=== PATIENT | female | born 1980 | race Caucasian/White ===

== ENCOUNTER 2023-04-08 23:10 | Emergency (ER) | payer OTHER, SELFPAY ==
--- NOTE | 2023-04-08 | CT_ITS ---
[place] [id number] Patient Name: GENEVIEVE GUTIÉRREZ MRN: [id number] date: 1980 Sex: F Assigned Patient Location: ER Current Patient Location: ER Accession/Order Number: [id number] Exam Date: 04/08/2023 00:59 Report Date: 04/09/2023 04:13 At the request of: ZOE GARCIA Procedure: CT abdomen pelvis w con EXAM: CT abdomen pelvis w con HISTORY: Abdominal pain; constipation for 2 weeks. COMPARISON: None. TECHNIQUE: Routine CT abdomen/pelvis with intravenous contrast. FINDINGS: Lower chest: Unremarkable. Liver: Anne Marie's lobe configuration of the liver, a variant of normal, with the right lobe measuring 20.8 cm in longitudinal dimension. Small focus of focal fatty infiltration or hypoperfusion anterior aspect medial segment left lobe of the liver, abutting the falciform ligament. Gallbladder/biliary tree: Unremarkable. Pancreas: Unremarkable. Spleen: Unremarkable. Adrenal glands: Unremarkable. Kidneys: Unremarkable. Bowel: Nonobstructive bowel gas pattern with a moderate amount of stool within the ascending and transverse colon. There are a few sigmoid diverticula without diverticulitis. The appendix, distal esophagus, stomach and small bowel are unremarkable. Inflammation: There is no free air, free fluid or inflammatory reaction. Vasculature: The abdominal aorta and the IVC are unremarkable. Lymphadenopathy: There are no pathologically enlarged lymph nodes within the abdomen/pelvis. Pelvis: The uterus and adnexal regions are unremarkable. The urinary bladder is unremarkable. There are a few pelvic phleboliths. Musculoskeletal: Small fat-containing umbilical hernia. Small endplate spurs at T11-12. Small bone island within the iliac bones measuring 0.8 cm on the right 0.4 cm on the left. CT/CT abdomen pelvis w con IMPRESSION: Nonobstructive bowel gas pattern with a moderate amount of stool within the ascending and transverse colon. Few sigmoid diverticula without diverticulitis. There is no inflammatory process. Electronically authenticated by: BENNETT SANCHEZ Date: 04/09/2023 04:13
[2023-04-08 23:24] VITALS: BP 137/86; PULSE 125; RESP 18; TEMP 37.2; O2SAT 100; BMI 35.1
--- NOTE | 2023-04-08 23:47 | ED_ITS ---
HPI - Nausea/Vomiting/Diarrhea General Chief complaint: Nausea/Vomiting/Diarrhea Stated complaint: BOWEL ISSUES Time Seen by Provider: 04/08/23 23:39 Source: patient Mode of arrival: walk-in Limitations: no limitations History of Present Illness HPI Narrative: patient presents complaining of constipation and only passing small balls of stool. Also has hemorrhoid. Emesis once tonight and thought she had a fever. No chest pain MD elicited complaint: Reports nausea and vomiting Related Data Home Medications Medication Instructions Recorded Confirmed No Known Home Medications 04/08/23 04/08/23 Allergies Allergy/AdvReac Type Severity Reaction Status Date / Time cephalexin [From Keflex] Allergy Verified 04/08/23 23:28 Review of Systems ROS Status of ROS 10 or more systems reviewed and unremark able except as noted in history and below [facility] Social History Smoking status: Current every day smoker Exam Constitutional Vital Signs, click to edit/add: Last Vital Signs Temp 98.9 F 04/08/23 23:24 Pulse 97 H 04/09/23 02:11 Resp 16 04/09/23 02:11 BP 108/69 04/09/23 02:11 Pulse Ox 100 04/09/23 02:11 O2 Del Method Room Air 04/09/23 02:11 Common normals: no apparent distress, oriented x3, no limitations, healthy appearing, alert and well nourished Eye Common normals: EOMs intact bilaterally and conjunctivae normal Respiratory Common normals: normal respiratory effort, no retractions, no use of accessory muscles and clear to auscultation bilaterally Cardio Common normals: regular rate, regular rhythm, S1 normal heart sound and S2 ant l heart sound GI Common normals: Normal to inspection, nondistended, normoactive bowel sounds present Other: tenderness LLQ anal verge with hemorrhoid non thrombosed anus examined with nursing present Extremity Common normals: normal to inspection Neuro Common normals: oriented x3, CN's II-XII intact bilaterally, moves all extremities and no focal motor deficits Psych Appearance: grossly normal Course Vital Signs Vital signs: Vital Signs Temperature 98.9 F 04/08/23 23:24 Pulse Rate 125 H 04/08/23 23:24 Respiratory Rate 18 04/08/23 23:24 Blood Pressure 137/86 04/08/23 23:24 Pulse Oximetry 100 04/08/23 23:24 Oxygen Delivery Method Room Air 04/08/23 23:24 Temperature 98.9 F 04/08/23 23:24 Pulse Rate 97 H 04/09/23 02:11 Respiratory Rate 16 04/09/23 02:11 Blood Pressure 108/69 04/09/23 02:11 Pulse Oximetry 100 04/09/23 02:11 Oxygen Delivery Method Room Air 04/09/23 02:11 MDM - Nausea/Vomiting/Diarrhea MDM Narrative Medical decision making narrative: patient presents after vomiting. Also complains of hemorrhoid that was confirmed on exam. hemorrhoid not thrombosed. CT with findings of constipation. Patient offered an enema but preferred laxative and discharged home. given magcitrate and discharged to follow up with her doctor. CT without findings of obstruction Lab Data Labs: Lab Results 04/09/23 04/09/23 Range/Units 00:41 03:20 WBC 8.1 (4.0-11.0) 10^3/uL RBC 4.37 (4.20-5.40) 10^6/uL Hgb 12.2 (12.0-16.0) g/dL Hct 37.6 (36.0-48.0) % MCV 86.0 (81.0-99.0) fL MCH 27.9 (26.7-34.0) pg MCHC 32.4 (29.9-35.2) g/dL RDW 12.8 (11.0-15.0) % Plt Count 332 (150-450) 10^3/uL MPV 8.7 L (9.5-13.5) fL Neut % (Auto) 73.3 (43.0-75.0) % Lymph % (Auto) 14.4 L (20.5-60.0) % [place] % (Auto) 9.3 (1.7-12.0) % Eos % (Auto) 2.2 (0.9-7.0) % Baso % (Auto) 0.6 (0.2-2.0) % Neut # (Auto) 5.9 (1.4-6.5) 10^3/uL Lymph # (Auto) 1.2 (1.2-3.8) 10^3/uL [place] # (Auto) 0.8 (0.3-0.8) 10^3/uL Eos # (Auto) 0.2 (0.0-0.7) 10^3/uL Baso # (Auto) 0.1 (0.0-0.1) 10^3/uL Abs Immat Gran (auto) 0.02 (0.00-0.03) 10^3/uL Imm/Tot Granulo (auto) 0.2 (0.0-0.5) % Sodium 136 (136-145) mmol/L Potassium 3.6 (3.5-5.1) mmol/L Chloride 99 (98-107) mmol/L Carbon Dioxide 27.6 (21.0-32.0) mmol/L Anion Gap 13.0 BUN 11.0 (7.0-18.0) mg/dL Creatinine 0.76 (0.55-1.02) mg/dL Est GFR ( Amer) >60 (>=60) Est GFR (Non-Af Amer) >60 (>=60) BUN/Creatinine Ratio 14.5 Glucose 92 (74-106) mg/dL Lactate 1.2 (0.4-2.0) mmol/L Calcium 9.3 (8.5-10.1) mg/dL Total Bilirubin 0.3 (0.2-1.0) mg/dL AST 13 L (15-37) U/L ALT 23 (14-59) U/L Alkaline Phosphatase 94 (46-116) U/L Total Protein 7.8 (6.4-8.2) g/dL Albumin 3.4 (3.4-5.0) g/dL Globulin 4.4 g/dL Albumin/Globulin Ratio 0.8 Lipase 26.0 (16.0-77.0) U/L Urine Color Yellow (YELLOW) Urine Clarity Clear (CLEAR) Urine pH 5.5 (5.0-9.0) Ur Specific [place] 1.015 (1.005-1.025) Urine Protein Negative (NEG/TRACE) mg/dL Urine Glucose (UA) Negative (NEGATIVE) mg/dL Urine Ketones Negative (NEGATIVE) mg/dL Urine Occult Blood Negative (NEGATIVE) Urine Nitrite Negative (NEGATIVE) Urine Bilirubin Negative (NEGATIVE) Urine Urobilinogen 0.2 (0.2-1.0) EU/dL Ur Leukocyte Esterase Negative (NEGATIVE) Imaging Data Abdominal x-ray: Radiologist's impression: of 2 Current View file://[email or web address] [place] [id number] Patient Name: GENEVIEVE GUTIÉRREZ MRN: [id number]:[id number] date: 1980 Sex: F Assigned Patient Location: ER Current Patient Location: ER Accession/Order Number: [id number] Exam Date: 04/08/2023 00:59 Report Date: 04/09/2023 04:13 At the request of: ZOE GARCIA Procedure: CT abdomen pelvis w con EXAM: CT abdomen pelvis w con HISTORY: Abdominal pain; constipation for 2 weeks. COMPARISON: None. TECHNIQUE: Routine CT abdomen/pelvis with intravenous contrast. FINDINGS: Lower chest: Unremarkable. Liver: Anne Marie's lobe configuration of the liver, a variant of normal, with the right lobe measuring 20.8 cm in longitudinal dimension. Small focus of focal fatty infiltration or hypoperfusion anterior aspect medial segment left lobe of the liver, abutting the falciform ligament. Gallbladder/biliary tree: Unremarkable. Pancreas: Unremarkable. Spleen: Unremarkable. Adrenal glands: Unremarkable. Kidneys: Unremarkable. Bowel: Nonobstructive bowel gas pattern with a moderate amount of stool within the ascending and transverse colon. There are a few sigmoid diverticula without diverticulitis. The appendix, distal esophagus, stomach and small bowel are unremarkable. Inflammation: There is no free air, free fluid or inflammatory reaction. Vasculature: The abdominal aorta and the IVC are unremarkable. Lymphadenopathy: There are no pathologically enlarged lymph nodes within the abdomen/pelvis. Pelvis: The uterus and adnexal regions are unremarkable. The urinary bladder is unremarkable. There are a few pelvic phleboliths. Musculoskeletal: Small fat-containing umbilical hernia. Small endplate spurs at T11-12. Small bone island within the iliac bones measuring 0.8 cm on the right 0.4 cm on the left. IMPRESSION: Nonobstructive bowel gas pattern with a moderate amount of stool within the ascending and transverse colon. Few sigmoid diverticula without diverticulitis. There is no inflammatory process Discharge Plan Discharge Chief Complaint: Nausea/Vomiting/Diarrhea Clinical Impression: Nausea and vomiting, Constipation Patient Disposition: Home, Self-Care Time of Disposition Decision: 04:40 Condition: Good Mode of Transportation: Private Vehicle Prescriptions / Home Meds: No Action No Known Home Medications Instructions: Constipation (DC), Acute Nausea and Vomiting (ED) Stand Alone Forms: Portal Instructions Referrals: ALYSA RODRIGUEZ [Primary Care Provider] - 1 week Discharge Date/Time: 04/09/23 04:51
--- NOTE | 2023-04-09 00:44 | PC.NURSE ---
Ultra sound used
[2023-04-09] MEDS: 0.9 % SODIUM CHLORIDE 1,000 ML 999 ML IV (00:53)
[2023-04-09] MEDS: MORPHINE SULFATE 4 MG/ML VIAL IV (00:54)
[2023-04-09] MEDS: ONDANSETRON PF 4 MG/2 ML VIAL IV (00:54)
[2023-04-09 00:57] LABS: Basophils Absolute Auto 0.1 10^3/uL (0.0-0.1); Basophils Percent Auto 0.6 % (0.2-2.0); Eosinophils Absolute Auto 0.2 10^3/uL (0.0-0.7); Eosinophils Percent Auto 2.2 % (0.9-7.0); Hematocrit 37.6 % (36.0-48.0); Hemoglobin 12.2 g/dL (12.0-16.0); Immature Granulocytes Abs Auto 0.02 10^3/uL (0.00-0.03); Immature Granulocytes Pct Auto 0.2 % (0.0-0.5); Lymphocytes Absolute Auto 1.2 10^3/uL (1.2-3.8); Lymphocytes Percent Auto 14.4 % (20.5-60.0); Mean Corpuscular HGB Conc 32.4 g/dL (29.9-35.2); Mean Corpuscular Hemoglobin 27.9 pg (26.7-34.0); Mean Platelet Volume 8.7 fL (9.5-13.5); Monocytes Absolute Auto 0.8 10^3/uL (0.3-0.8); Monocytes Percent Auto 9.3 % (1.7-12.0); Neutrophils Absolute Auto 5.9 10^3/uL (1.4-6.5); Neutrophils Percent Auto 73.3 % (43.0-75.0); Platelet Count 332 10^3/uL (150-450); Red Blood Count 4.37 10^6/uL (4.20-5.40); Red Cell Distribution Width 12.8 % (11.0-15.0); White Blood Count 8.1 10^3/uL (4.0-11.0)
[2023-04-09 01:13] LABS: Lactate/Lactic Acid 1.2 mmol/L (0.4-2.0)
[2023-04-09 01:23] LABS: Alanine Aminotransferase 23 U/L (14-59); Albumin Globulin Ratio 0.8; Albumin Level 3.4 g/dL (3.4-5.0); Alkaline Phosphatase 94 U/L (46-116); Aspartate Amino Transferase 13 U/L (15-37); BUN Creatinine Ratio 14.5; Bilirubin Total 0.3 mg/dL (0.2-1.0); Calcium 9.3 mg/dL (8.5-10.1); Carbon Dioxide 27.6 mmol/L (21.0-32.0); Chloride 99 mmol/L (98-107); Estimated GFR (African America >60 (>=60); Estimated GFR (Non-African Ame >60 (>=60); Globulin 4.4 g/dL; Glucose 92 mg/dL (74-106); Potassium 3.6 mmol/L (3.5-5.1); Sodium 136 mmol/L (136-145); Total Protein 7.8 g/dL (6.4-8.2)
[2023-04-09 02:11] VITALS: BP 108/69; PULSE 97; RESP 16; O2SAT 100
[2023-04-09 03:28] LABS: Bilirubin Urine NEGATIVE (NEGATIVE); Blood Urine NEGATIVE (NEGATIVE); Clarity Urine CLEAR (CLEAR); Color Urine YELLOW (YELLOW); Glucose Urine UA NEGATIVE (NEGATIVE); Ketones Urine NEGATIVE (NEGATIVE); Leukocyte Esterase Urine NEGATIVE (NEGATIVE); Nitrite Urine NEGATIVE (NEGATIVE); Protein Urine NEGATIVE (NEG/TRACE); Specific Gravity Urine 1.015 (1.005-1.025); Urobilinogen Urine 0.2 EU/dL (0.2-1.0); pH Urine 5.5 (5.0-9.0)
[2023-04-09 03:33] LABS: Urine Microscopic Indicated NO
[2023-04-09] MEDS: MAGNESIUM CITRATE 296 ML SOLUTION PO (04:47)
[2023-04-09] MEDS: ONDANSETRON 4 MG RAPDIS TABLET SL (04:48)
== END 2023-04-09 04:51 | disposition home or self-care (01) ==
PROVIDERS: Emergency Provider Internal Medicine; Family Provider Family Medicine; PCP Family Medicine
DX: K59.00 Constipation, unspecified (principal); R11.2 Nausea with vomiting, unspecified; F17.200 Nicotine dependence, unspecified, uncomplicated; K64.9 Unspecified hemorrhoids
CPT/HCPCS: 36415; 74177; 80053; 81003; 83605; 83690; 85025; 96374; 96375; 99285; Q9967

== ENCOUNTER 2024-09-10 01:46 | Emergency (ER) | payer OTHER, SELFPAY ==
[2024-09-10 01:48] VITALS: BP 145/81; PULSE 111; TEMP 37.5; O2SAT 100; BMI 36.3
--- OUTSIDE RECORDS SUMMARY | 2024-09-10 01:53 | XMS_ITS | CCD ---
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 Name Role Phone Link, Joel Young Primary Care Physician [phone] Krystle RODRIGUEZ Primary Care Physician Kasi Bundy Attending Unavailable Kasi Bundy Attending Unavailable Allergies Allergy Classification Reported Allergen(s) Allergy Type Date of Onset Reaction(s) Facility (3 sources) Cephalexin; Translations: [cephalexin] Drug Allergy vomiting [facility] (2 sources) Nicotine; Translations: [nicotine] Drug Allergy Other (qualifier value) [facility] [place] Comment on above: worsens GERD & Asthm a (1 source) Nicotine; Translations: [Nicotrol] Drug Allergy [facility] Repository Medications Current Medications Medication Drug Class(es) Dates Sig (Normalized) Sig (Original) dextromethorphan hydrobromide 1.5 mg/ml / doxylamine succinate 0.625 mg/ml oral solution (2 sources) Uncompetitive E-umjcjk-W-aspartat e Receptor Antagonist, Sigma-1 Agonist Start: 02-08-2021 take 20 mL by mouth every six hours dextromethorphan- doxylamine 30 mg-12.5 mg/20 mL oral liquid 20 mL, Oral, q6hr, 200 mL, Refill(s) 1, [facility], 160, cm, 04/17/20 5:07:00 EST, Height/Length Dosing, 87.7, kg, 04/17/20 5:07:00 EST, Weight Dosing Start Date: 02/08/21 Status: Ordered ketorolac tromethamine 10 mg oral tablet (1 source) Nonsteroidal Anti-inflammatory Drug, Cyclooxygenase Inhibitor Start: 12-23-2021 End: 12-28-2021 take 1 tablet by mouth four times daily as needed for pain ketorolac 10 mg Tab 10 mg = 1 tab(s), Oral, QID, PRN for pain, X 5 day(s), # 20 tab(s), Refills(s) 0, Pharmacy: [facility], 160, cm, 12/23/21 16:44:00 EDT, Height/Length Dosing, 87, kg, 12/23/21 16:44:00 EDT, Weight Dosing Start Date: 12/23/21 Stop Date: 12/28/21 Status: Ordered lidocaine 0.05 mg/mg medicated patch (1 source) Antiarrhythmic, Amide Local Anesthetic Start: 12-23-2021 Lidoderm 5% topical film 1 patch(es), Topical, Daily, 7 EA, Refill(s) 0, apply 12 hours on and 12 hours off daily, [facility], 160, cm, 12/23/21 16:44:00 EDT, Height/Length Dosing, 87, kg, 12/23/21 16:44:00 EDT, Weight Dosing Start Date: 12/23/21 Status: Ordered Lidoderm 5% topical film (1 source) Start: 12-23-2021 Lidoderm 5% topical film 1 patch(es), Topical, Daily, 7 EA, Refill(s) 0, apply 12 hours on and 12 hours off daily, [facility], 160, cm, 12/23/21 16:44:00 EDT, Height/Length Dosing, 87, kg, 12/23/21 16:44:00 EDT, Weight Dosing Start Date: 12/23/21 Status: Ordered Promethazine (2 sources) Phenothiazine Start: 02-08-2021 take 5 mL by mouth every six hours for cough Promethazine DM oral syrup 5 mL, Oral, q6hr for cough, 240 mL, Refill(s) 2, [facility], 160, cm, 04/17/20 5:07:00 EST, Height/Length Dosing, 87.7, kg, 04/17/20 5:07:00 EST, Weight Dosing Start Date: 02/08/21 Status: Ordered Problems Active Problems Problem Classification Problem Date Documented Date Episodic/Chronic Anxiety disorders (2 sources) Generalized anxiety disorder 09-01-2019 Chronic Asthma (4 sources) Asthma 10-01-2013 Chronic Esophageal disorders (2 sources) Gastroesophageal reflux disease 09-01-2019 Chronic Mood disorders (4 sources) Depressive disorder 06-26-2013 Chronic Other circulatory disease (1 source) Disorder of respiratory system; Translations: [Other specified symptoms and signs involving the circulatory and respiratory systems] Onset: 06-25-2022 Episodic Regional enteritis and ulcerative colitis (2 sources) Enteritis of small intestine 09-09-2019 Chronic Skin and subcutaneous tissue infections (2 sources) Abscess 06-26-2013 Episodic Spondylosis; intervertebral disc disorders; other back problems (1 source) Low back pain; Translations: [Low back pain, unspecified] Onset: 12-23-2021 Episodic Substance-related disorders (2 sources) Smoker 09-01-2019 Chronic Comment on above: Added secondary to d ocumentation in Social History. 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 groin abscess MRSA thigh abscess MRSA axilla 10/19/09 Results Test Name Value Interpretation Reference Range Facility ED Clinical Summaryon 2022 ED Clinical Summary [place] [id number] ED Clinical Summary Person Information Name: GENEVIEVE GUTIÉRREZ Jeremy Natalia/[facility] Age: 42 Years : 1980 Sex: Female Language: Kyrgyz PCP: ANDREW STORY CNP Marital Status: Phone: [phone] Visit Id: Visit Reason: Constipation; Fever; Hemorrhoids; Hemorrhoid/FEVER Speciality: Acuity: 2 Enc Type: Emergency Med Service: Emergency Arrival: 04/08/2023 21:27:05 Discharge: 04/09/2023 00:02:05 LOS: 000 02:35 Checkin: 04/08/2023 21:27:05 Checkout: 04/09/2023 00:02:05 Dispo Type: Left Without Being Seen EVENTS: Event Name Event Status Request Date/Time Start Date/Time Complete Date/Time Arrive Complete 04/08/2023 21:27:05 04/08/2023 21:27:05 04/08/2023 21:27:05 Document Home Meds Request 04/08/2023 21:27:05 Triage Complete 04/08/2023 21:27:05 04/08/2023 22:07:12 04/08/2023 22:07:12 Bed Assign Complete 04/08/2023 22:48:06 04/08/2023 22:48:06 04/08/2023 22:48:06 Dr Exam Request 04/08/2023 22:48:06 RN Exam Request 04/08/2023 22:48:06 Discharge Complete 04/09/2023 00:02:20 04/09/2023 00:02:20 04/09/2023 00:02:20 Transfer Complete 04/09/2023 00:02:20 04/09/2023 00:02:20 04/09/2023 00:02:20 ADDRESS: [address] [place] [phone] PHYS DOC NOTES: MEDICAL INFORMATION: Prescriptions Given: Medications to Continue with No Changes Other Medications dextromethorphan-dox ylamine (dextromethorphan-do xylamine 30 mg-12.5 mg/20 mL oral liquid) 20 Milliliter By Mouth every 6 hours. Refills: 1. dextromethorphan-pro methazine (Promethazine DM oral syrup) 5 Milliliter By Mouth every 6 hours as needed for cough. Refills: 2. lidocaine topical (Lidoderm 5% topical film) 1 Patches Topical every day. apply 12 hours on and 12 hours off daily. Refills: 0. PATIENT EDUCATION INFORMATION: Instructions: Follow up: DIAGNOSIS: Normal [facility] ED Patient Education Noteon 04-09-2023 ED Patient Education Note Normal [facility] ED Patient Summaryon 023 ED Patient Summary [address] [address] Patient Discharge Instructions Person Information Name: GENEVIEVE GUTIÉRREZ Age: 42 Years Arrival Date: 04/08/2023 21:27:05 Discharge Diagnosis: Primary Care Physician: ANDREW STORY CNP Provider Information Primary Provider: Advanced [employer] Contact Associate:None The exam and treatment you received in the Emergency Department were for an urgent problem and are not intended as complete care. It is important that you follow up with a doctor, nurse practitioner, or physician?s cardiovascular physician assistant for ongoing care. If your symptoms become worse or you do not improve as expected and you are unable to reach your usual health care provider, you should return to the Emergency Department. We are available 24 hours a day. GENEVIEVE GUTIÉRREZ has been given the following list of patient education materials, prescriptions and follow-up instructions: Follow-up Instructions: In the event that this physician does not participate in your insurance network, please consult with your insurance company to find a nearby participating provider. Patient Education Materials: A MESSAGE TO ALL PATIENTS REGARDING OPIOIDS PRESCRIPTION OPIOIDS: WHAT YOU NEED TO KNOW Prescription opioids can be used to help relieve qcstqtfv-wz-dsfvcu pain and are often prescribed following a surgery or injury, or for certain health conditions. These medications can be an important part of the treatment but also come with serious risks. It is important to work with your healthcare provider to make sure you are getting the safest, most effective care. WHAT ARE THE RISKS AND SIDE EFFECTS OF OPIOID USE? Prescription opioids carry serious risks of addiction and overdose, especially with prolonged use. An opioid overdose, often marked by slowed breathing, can cause sudden . The use of prescription opioids can have a number of side effects as well, even when taken as directed: ? Tolerance?meaning you might need to take more of the medication for the same pain relief ? Physical dependence?meaning you have symptoms of withdrawal when a medication is stopped ? Increased sensitivity to pain ? Constipation ? Nausea, vomiting, and dry mouth ? Sleepiness and dizziness ? Confusion ? Depression ? Low levels of testosterone that can result in lower sex drive, energy, and strength ? Itching and sweating RISKS ARE GREATER WITH: ? History of drug misuse, substance use disorder, or overdose ? Mental health conditions (such as depression or anxiety) ? Sleep apnea ? Older age (65 years and older) ? Avoid alcohol while taking prescription opioids. Also, unless specifically advised by your health care provider, medications to avoid include: ? Benzodiazepines (such as Xanax or Valium) ? Muscle relaxants (such as Soma or Flexeril) ? Hypnotics (such as Ambien or Lunesta) ? Other prescription opioids KNOW YOUR OPTIONS Talk to your health care provider about ways to manage your pain that don?t involve prescription opioids. Some of these options may actually work better and have fewer risks and side effects. Options may include: ? Pain relievers such as acetaminophen, ibuprofen, and naproxen ? Some medication that are also used for depression or seizures ? Physical therapy and exercise ? Cognitive behavioral therapy, a psychological, goal-directed approach, in which patients learn how to modify physical, behavioral, and emotional triggers of pain and stress. IF YOU ARE PRESCRIBED OPIOIDS FOR PAIN: ? Never take opioids in greater amounts or more often than prescribed. ? Follow up with your primary health care provider. o Work together to create a plan on how to manage your pain. o Talk about ways to help manage your pain that don?t involve prescription opioids. o Talk about any and all concerns and side effects. ? Help prevent misuse and abuse o Never sell or share prescription opioids. o Never use another person?s prescription opioids. ? Store prescription opioids in a secure place and out of reach of others (this may include visitors, children, friends, and family). ? Safely dispose of unused prescription opioids: Find your community drug take-back program or your pharmacy mail-back program, or flush them down the toilet, following guidance from the Food and Drug Administration (www.fda.gov/Drugs/R esourcesForYou). ? Visit www.cdc.gov/drugover dose to learn about the risks of opioids abuse and overdose. ? If you believe you may be struggling with addiction, tell your health child care team lead and ask for guidance or call SAMHSA?S National Helpline at 2-639-576-ZZNN. v Source: US Department of Health and Human Services/Center for Disease Control & Prevention [facility] Medications Given: Medication Dose Route No medications found. Medication Informatio (more content not included)... [facility] Consent for Treatmenton 03-16 Consent for Treatment [id number] 31 [id number] #1.00TIFF [facility] Coding Summary.on 06-28-2022 Coding Summary. [id number] Gh0bWw+PGhlYWQ+PE1FV CNkM79ftITthD5eJ9QJW ElOSywgQVBQTElOSyIgb gBcNJ9ihXRkXIKw IC8+QE1bCNErOwygpFAb t9J4cZI6M36jir3xRSsw cZM4SXPnEfOvjhcsq7ne gUm1DHoyNorfOnCa UMDbfZ88OAW8oO93Qc54 yZKqtUUqv9iiqZy9TmOf FJQbGKN1vOwxKJheb5Ji UMCeH63epJBuv3R2 IGNvbGxhcHNlOyBlbXB0 mV6cWRqyfxtfq7lpqpjc Nrv2zn24iCWlk9O6bES4 S1KwxmZ1VXRfmWMp GlnaxKFGgT1qncsfk3ub karfRpWdOKLtRPj5VGw0 YXTsvKpgRpLvJH30INT6 ZJEednWdT7WnDHHx hAprXnR9d6V7Cx4YQ6KO TkzsQ0JIKDRQYLkakQK+ OF42gy64B4YhYljdWfd4 ATVeKBI4jQJ3vS4d RFKkIKpps8W0gEX3V4Pq gjLudo7eg7kqXHKrZKpf W01nyGNgo3I9QEDkxHJ1 CZYfjOrbUuLkzL48 Oyc+YXBxuIrjb9WmXjzj w5tkg9mirZg7QqcuVOOd fjXsmEqvKBN9t9FwZs8v VDMqvSN3eFR7gQ6z CxMpGqE7YFcdH742AjEt hEAoVhhiZ24aD3RmtOH+ ZWGdOwx4AFEuvPcrLP8m G7NoLKWfphqinUNm dGcaLE6jPMSdjsuvFPOm xL3yUDDzO9m1OiXsMaN3 ABozH8TiQDJekxtuEj13 tN6xBgYwYyP6GNyg B9SzopX4KSCsnICwSJri IYJ7H00mm0Y1TBRzQAId INB3hHV8vM4gvBihfxju bGVmdDsgdmVydGlj PXytCTlmA974BTHbkIwq PkNvZGluZyBEYXRlOiAg MDMvMTYvMjAyMzwvdGQ+ LHMbLDZ5xMkkZQBn hABtODthGj9prPvvaHaz UJ9iZKGlsdrnUNPvdL0s RLSuiSFhsFsrRN6pVXJm bcanh365MjPrPUG8 EMVhoJBbC5LlgO4jIiEn KSTbLABnH6RohKBlEJek N588SJwcTbM7PPYdwyUe Z2MmNKLpvExnPiZ8 l0Q3Cb3Qg1PnauyfY1Cr kYVtSsOfKzcpPCa2W2Qy PjwvdHI+WV84ISVkDG53 FTn2XVT2yBrnFIiy UEUlJ9ZpvU1oEqCaEYJv ZGRkOyc+PHRhYmxlIHdp ZHRoPScxMDAlJyBzdHls MP9eUq9uMRFlPDEy eVwlkJQxTcUgl9ygTDXc MDtaFH4igGnsU9RcvIM8 RINsu4k6Yo02R36xQ4Co dXA+LMLjuRP9rKG7 pF8hBySdPjX5DYflP362 KyPevAIpRdbyi8jor6sc pYq5CdQ6DSUzwuCioIjd TFW3q4HeUu40I87t IHdpZHRoPSIxNSUiIHZh pQiynh5rgD8vBm4+PGNv hFH9tXR2cY2xJcDvQiP4 IIkqA068HkZozFGf Avbft7lhg4rkgWy0SoJp KZNqiiAcqKxkQMK7m0Yn Ir49C7TbzJgnv3CfZmg6 uw74kYEky1X5iPZ7 M0KoDQFzwvftaAWhyYhj YF9hKXSlttueHTGqqO4i HSBgR2v3TdZrSrG9FAty A8SiedF9ULVoqPGg DUIpwJVLwW7rtxert1wq huczQsOjDPGhFAa0YFt1 QVBkhVpiSoVqMHQ7DkF3 IYE5qKFqrO4bxKdd jrkagP5uAmp+IJX9qDHb wRWFAT7gGugmwQZ+PHRk LTK2mKchILhoDSMtkW5c TBGlG5x5BnNnXyQ4 XRenT1KrquV0DTAopKHf EONiuEYKqQ0cmfwby2lx khpqNtRaHRHwOYi2GOb6 LWFsaWduOiBsZWZ0 NxK1DAR7wDNmrN7gnBpp nmviyN9nZzd+QmlydGgg QFY7SKa2K4PiOff9KEId qLjaYV3ryFReNCnl Lc3poOpsvDohHJ0iQPWi owjoa789ZlGkv4sdWFDy pCBcBGknDQR0T43qg9T2 BRIyFZJxDVC6rSV2 aX5ezCnmeqjacBJlpHdw eqNrqBgvPPymFMbdF854 USExbJatYoNcNKd2W9Sh Ort2ETOqxVgtBV4o gDDkFLfvSz4tyMjbmXxz LZ8wXFYtpxcmb055LdWe y6zqCLAuoDMsOKweWUI9 H93np9L1MWBlKZNy GCO7eVH9mQ7anZsonkbx bGVmdDsgdmVydGljYWwt ZLxsT103BKPtqTilQaTw wLz4H9MaLmc9FSVj tOheEF2xiSPbDMpvOn1m qPmixVicZB6fMWFjixup n532LiDue1pqLWDlmZSv TRcoKYN4N35ro6B3 BCOvFMXrTGO7zXZ8sN0g bGlnbjogbGVmdDsgdmVy zRdwKJxfLIhqN489FWZf cDsnPlBhdGllbnQg YVqyBPk7U7GrJxtkyVV+ OP07CASzHY48eETuiQEe p2qyrLq1VtFyNWRfISA8 mUqqSFbar0FwATAc K26xpGDdn8V0UQWkkDsv cRIwEgFwfPL5yA7wTKvt zihqw8luqaifYlszl6rk ft12zL88B08tKBrh ZHRoPSIzMCUiIHZhbGln zc1cmK5nSd5+PGNvbCB3 tMU7dJ7mRKWoOaJ4EXog S562OyDbrGYtStva f4egn6tgxZj4NmZ9ZXVj tqNzsSjyGXZ8k6GwTp76 A41zSVbpMGTnQCNvEGJx ZEGgxWuldl5slF1d Ii8+WABouSQ4kQK7lI1q GlFpLqW2SFqiJ366RpEy mRHvXubzO84mZ6JdfFU+ JEXaOod0ZOMfoRde GH9nqKSbDNgsFf6qFRW9 LoXoRkRiJNntT2ApJEEx dvaieejkzQM4MVRbOWZe tE02Kj5unVfjOQAk gPNXyR5axtxkf3amjcqh GpIrHNRuAUy3LKp6BLDb qEmpQbUuNVU7ByM6ZYE8 wZXykM2ucVugrroo bB9sU1WlPXXrjdalYd07 cN2mJtDwNeS1WXqaZbo+ M6QRH0BZTKpAUVAUDWFA Yj6IQW65B1GhBtu2 NVYddXevQD6ffAXbLCxy Up5riUaayExeIN0oNDHd cauhZYDeaI1xQKKriFRz iGsfAJ7iSHXcsvsb v383XhSlFUM0HUHakYBh Y6KciI1nKyYuUGTtDILt Q6ApgBFvKOobA038JNuy NpW7LXVdfyDfX5Gc EROvaFwaUmQ1p4H6Ln7r Nq6yMA1tLBusAV77NO84 oXEzc2Y1yEY6Q6DlPLCw icnerzzfqCF9AHAz JAUcaC17zTBkJDigRp0y z4K0p017XCLwVLIguL67 Xq4osDyfTNYqnAXKxG7a jacuw2lrgykmXnKu MNJhIZk1AJz0GJPsjKjp DzDlHPC3MmW0GSI5vVZv oQ3eqPbjqbbbdT8rYzc+ KanyHFKtohU4R5Il Mao9YUXweFlaHV2deVRa GWvfMz9qfXteoOnpUP0c VNMnikdnJWIxcY5xCWZe tHQtyYomZU3uTJNo djwtb071MmZyJQO7BWQw hNJxZ4FcmZ1qUbRyZCHj WURaE8ZfkZJrZRdaM263 KLafUoI1BGRayxHn L5GuUTQtxGyjItL1f0E3 Yp1FUB6gjUP3U9PgUnf6 PULjxQyqHE7nvKEmENfb Rs7hiQfyyDxuPN2c JELktrvpXHUuiY3pNKPr bCVngMynQV9rLGOfaswj f796XrOkSMN0ONHujJJk J2LhoY7sMjGyKNZq TAHfY3BhxVCgNCxqJ760 SBgtLmA9LOJfeiQvR8Re HRMwiNxaQbW5u0I1Od1J yCQvD6FfG7i4L2Ss PjwvdHI+FN55AUJeST59 bKDhrUCuy8xmuVt6NqDm MFPbJOT0nMjtSRqab5Ev QIXeU90riJAze2M9 IGNvbGxhcHNlOyBlbXB0 qY1xQOqncvzye5dbzvoz Nvvqk8vwlj73iP83T25t IHdpZHRoPSIzMCUi WVHarYqwjl1zaP4rJt3+ WFWjpIB4rXD9jK8xCdRo HlN3AQqvJ619PjRyrNGk Cgoih9ccg2wzaMn9 IjIwJSIgdmFsaWduPSJ0 v6QoHj81L05zNMcxNILu HYUmLYUbRLRxjVmutb1o sY5aLs9+FN7mj7wh nn13oY75bQQ+PHRkIHN0 dFmqGDcjWONhyB5lIOku VtH5RZOmMdOgtU61oMIq ANpwCp6qqIpcjUfm IT4aNFBuepuwr957RzMa s9xqEMQuoIGmOHumVYI8 B36ol0M8MLCqJAJmEXC1 sVF3hF1qcBytzbgw bGVmdDsgdmVydGljYWwt QCnkA186VBRctDtbHoVr iSCdN2brlpKEZP1qAzah dGQ+VBEsZDH7sIci NMbxMGZjyC6hHTZsE8x1 EgPeLrL1AOoeP0NadeU9 ENTsmHWbQQFojWARwF9j teqmu8dndsttTcXp JZPvOIw3AGq3TCXzePun UoUqBJI4KaY8TRK8eWXq gK6ntQfwrakwlH1vZlh+ RklOOjwvdGQ+PHRk RBR9tAxnRPavGCPsqS7k LGYcK8k3OpKjUfY0HMmm I8BlkyO8OVNcwHEmYMIj dZAClX6ktlgsb7qt qfbfXeQaEFPnYOc0FVl4 COZncRzzZsUvVDP0ZoG1 PDG6iSTzdU5jvHgvuymq nN4aEpy+TVJOOjwv dGQ+VLBfAEQ7lQgaEOhm YXAabS6bNJJnB9d4SeMz KwL1ANwoO2DytlP5WCHc xRQgGRBsbXUCsI6x lruaf2ijpytqQiErFPQs LQb9SXp2YBKdgLhsPbZe VRU5ExK9NYR6cSOucS1q pAmajduhwU5kZsb+ MHP0SUV5PZ84TE21J4Ik PjwvdGFibGU+PHRhYmxl IHdpZHRoPScxMDAlJyBz rDtiFY7zMr8yUPIi LWNv (more content not included)... Normal [facility] ED Note-Physicianon 06-27-19 ED Note-Physician Basic Information Time Seen: Zac Craig PA-C 06/25/2022 20:10 Chief Complaint pt to ED with c/o possible throat FB. pt states she was eating smarties and she bite into one and the other half flung back into throat. incident occured yesterday. pt still has FB sensation. c/o painful swallowing. no SOB or drooling. History of Present Illness Patient is a 41-year-old female presents ED with complaint of a foreign body sensation in her throat. Patient reports that she was eating smarties candies yesterday and she had half of 1 which she swallowed whole. Patient reports that since that time she had a sensation like there was a smarties stuck in the back of her throat. Patient complains of pain with swallowing. Patient denies any shortness of breath, difficulty handling secretions. Patient denies any cough, shortness of breath, chest pain. Patient report does report that she made herself throw up today try to get rid of it with no relief. Patient has been able to eat and drink today. Review of Systems Full 10 system ROS performed. Pt denies symptoms except as noted above in the HPI. Physical Exam Vitals & Measurements T: 36.9 ?C(Oral) HR: 111(Peripheral) RR: 18 BP: 150/90 SpO2: 98% HT: 160 cm WT: 88.7 kg BMI: 34.65 VITALS: I have reviewed the triage vital signs. GENERAL: Well developed, well appearing adult in no acute distress. NEURO: Alert and oriented. Moves all extremities. Face is symmetric and expressive. EYES: PERRL. No scleral icterus or conjunctival injection. No discharge. HENT: Normocephalic, atraumatic. Hearing is grossly intact. Nares grossly patent and without discharge. Mucous membranes moist. NECK: No JVD. Patient moves neck without restriction. CARDIO: Rhythm regular. Normal rate. No murmur, rub, or gallop. Pulses equal bilaterally in the upper and lower extremity. No lower extremity edema. PULM: Lungs clear to auscultation in all young. No wheezes, rales, or rhonchi. No conversational dyspnea. No splinting, stridor, or accessory muscle use. GI/: Abdomen is soft and non-tender. Normoactive bowel sounds. EXTREMITIES: Symmetric muscle bulk. No joint swelling. No clubbing, cyanosis, or deformity. SKIN: Warm and dry. Normal turgor. No rash or lesions appreciated. PSYCH: Mood, affect, and interaction is appropriate to the setting. Medical Decision Making Number and Complexity of Problems Differential Diagnosis: [] [facility] Data External documents reviewed: Not applicable My EKG interpretation: Not applicable My CT interpretation: Not applicable My X-ray interpretation: Not applicable My Ultrasound interpretation: Not applicable Decision rules/scores evaluated: Not applicable Discussed with: Not applicable Treatment and Disposition ED Course: Patient presents ED with complaint of foreign body sensation in throat. Patient without any difficulty breathing, lungs clear to auscultation. Nothing visible on physical exam. Patient most likely with globus sensation from scratch of oropharynx or esophagus. Patient given a GI cocktail. Patient struck to follow-up with PCP with ongoing symptoms. Return precautions discussed. Patient discharged home. Shared decision making: As above Code status: Not addressed during this visit Assessment/Plan Globus sensation (R09.89: Other specified symptoms and signs involving the circulatory and respiratory systems) Orders: Al hydroxide/Mg hydroxide/simethicon e, 30 mL, Susp-Oral, Oral, Once, Stop date 06/25/22 20:27:00 EDT, STAT, Start date 06/25/22 20:27:00 EDT atropine/hyoscyamine /PB/scopolamine, 10 mL, Elixir, Oral, Once, Stop date 06/25/22 20:27:00 EDT, STAT, Start date 06/25/22 20:27:00 EDT lidocaine topical, 200 mg, 10 mL, Soln-Oral, Oral, Once, Stop date 06/25/22 20:27:00 EDT, STAT, Start date 06/25/22 20:27:00 EDT Medications Administered Given Al hydroxide/Mg hydroxide/simethicon e 200 mg-200 mg-20 mg/5 mL oral suspension, 30 mL, Oral Elixir, 10 mL, Oral lidocaine Viscous Top 2% Betzy 15 mL, 200 mg, Oral Disposition Plan Patient Discharge Condition Stable Discharge Disposition To home Discharge Prescription List Prescriptions No active prescription medications Follow-up With When Contact Information Krystle RODRIGUEZ In 3 days 06/28/2022 EDT 24 [facility] [place] [address] Business (1) Additional Instructions: Call the office of your primary care doctor to arrange for follow-up within the above-stated timeframe. Follow-up with your primary care doctor about this ED visit. You should review your labs, imaging, and diagnoses from this ED visit with your primary care physician. If you were prescribed medications you should discuss possible side-effects and drug interactions with your pharmacist. Call 911 or go to the nearest Emergency Department if you develop any new or worsening symptoms. Patient Education Swallowed Foreign Body, Adult Attestation Patient seen and evaluated (more content not included)... Normal [facility] Comment on above: Result Comment: Elec tronically Signed By: Zac Craig PA-C\.br\Date and Time Signed: 06/25/22 21:23 EDT\.br\Electronically Co-Signed By: Kasi uBndy DO\.br\Date and Time Co-Signed: 06/26/22 00:55 EDT Consent for Treatmenton 06-13 Consent for Treatment [id number] 30 [id number] #1.00CD:127 Normal [facility] Discharge Instructionson Discharge Instructions [id number]#1.00CD:127 [facility] ED Clinical Summaryon 2022 ED Clinical Summary [address] [address] ED Clinical Summary Person Information Name: GENEVIEVE GUTIÉRREZ Natalia/[facility] Age: 41 Years : 1980 Sex: Female Language: Kyrgyz PCP: Krystle RODRIGUEZ MD Marital Status: Phone: [phone] MRN: [id number] Visit Id: Visit Reason: Throat pain - Adult; Throat foreign body; SOMETHING STUCK IN THROAT Speciality: Acuity: 4 Enc Type: Emergency Med Service: Emergency Arrival: 06/25/2022 19:45:18 Discharge: 06/25/2022 20:49:50 LOS: 000 01:04 Checkin: 06/25/2022 19:45:18 Checkout: 06/25/2022 20:49:50 Dispo Type: Home (Routine DC) EVENTS: Event Name Event Status Request Date/Time Start Date/Time Complete Date/Time Arrive Complete 06/25/2022 19:45:18 06/25/2022 19:45:18 06/25/2022 19:45:18 Document Home Meds Request 06/25/2022 19:45:18 Triage Complete 06/25/2022 19:45:18 06/25/2022 20:04:11 06/25/2022 20:04:11 Registration Complete 06/25/2022 19:47:43 06/25/2022 19:47:43 06/25/2022 19:47:43 Reg Complete Request 06/25/2022 19:47:43 Reg Bed Request Complete 06/25/2022 19:47:43 06/25/2022 19:47:43 06/25/2022 19:47:43 Bed Assign Complete 06/25/2022 20:04:24 06/25/2022 20:04:24 06/25/2022 20:04:24 Dr Exam Complete 06/25/2022 20:04:24 06/25/2022 20:10:18 06/25/2022 20:10:18 RN Exam Complete 06/25/2022 20:04:24 06/25/2022 20:25:49 06/25/2022 20:25:49 Registration Complete 06/25/2022 20:10:18 06/25/2022 20:23:54 06/25/2022 20:23:54 Dr Exam Complete 06/25/2022 20:12:56 06/25/2022 20:12:56 06/25/2022 20:12:56 Meds Admin Complete 06/25/2022 20:28:10 06/25/2022 20:37:40 Discharge Complete 06/25/2022 20:30:04 06/25/2022 20:49:54 06/25/2022 20:49:54 Transfer Complete 06/25/2022 20:49:54 06/25/2022 20:49:54 06/25/2022 20:49:54 ADDRESS: [address] [place] [id number] PHYS DOC NOTES: MEDICAL INFORMATION: Prescriptions Given: Medications to Continue with No Changes Other Medications dextromethorphan-dox ylamine (dextromethorphan-do xylamine 30 mg-12.5 mg/20 mL oral liquid) 20 Milliliter By Mouth every 6 hours. Refills: 1. dextromethorphan-pro methazine (Promethazine DM oral syrup) 5 Milliliter By Mouth every 6 hours as needed for cough. Refills: 2. lidocaine topical (Lidoderm 5% topical film) 1 Patches Topical every day. apply 12 hours on and 12 hours off daily. Refills: 0. PATIENT EDUCATION INFORMATION: Instructions: Swallowed Foreign Body, Adult Follow up: With: Address: When: Krystle RODRIGUEZ [address] [place] [address] [id number] [facility] (2) In 3 days 06/28/2022 Comments: Call the office of your primary care doctor to arrange for follow-up within the above-stated timeframe. Follow-up with your primary care doctor about this ED visit. You should review your labs, imaging, and diagnoses from this ED visit with your primary care physician. If you were prescribed medications you should discuss possible side-effects and drug interactions with your pharmacist. Call 911 or go to the nearest Emergency Department if you develop any new or worsening symptoms. DIAGNOSIS: Globus sensation Normal [facility] ED Patient Education Noteon 06-25-2022 ED Patient Education Note ENT Swallowed Foreign Body, Adult A swallowed foreign body is an object that gets stuck in the digestive tract, either in the part of the body that moves food from the mouth to the stomach (esophagus) or in another part. When a person swallows an object, it passes into the esophagus. The narrowest place in the digestive system is where the esophagus meets the stomach. If the object can pass through that place, it will usually continue through the rest of the digestive system without causing problems. A foreign body that gets stuck may need to be removed. Foreign bodies may be swallowed by accident or on purpose. It is very important to tell your health care provider what you have swallowed. Some swallowed objects can be life-threatening, and you may need emergency treatment. Dangerous swallowed foreign bodies include: ? Objects that get stuck in your throat. ? Objects that make you unable to swallow. ? Objects that interfere with your breathing. ? Sharp objects. ? Harmful or poisonous (toxic) objects, such as batteries or illegal drugs. What are the causes? The most common swallowed foreign body is food that will not pass through your esophagus to your stomach (food impaction). Foods that commonly become impacted include meats and hard vegetables such as carrots and radishes. Other common swallowed foreign bodies include: ? Pieces of bone from meat or fish. ? Toothpicks. ? Dentures. What increases the risk? You are more likely to have a swallowed foreign body if you: ? Wear dentures. ? Have been drinking alcohol or taking drugs. ? Have a mental health condition. ? Have difficulties with thinking and learning (cognitive impairment). ? Have a narrowed or scarred area in your digestive tract. What are the signs or symptoms? Symptoms of this condition include: ? Pain or pressure in your throat or chest. ? Not being able to swallow food or liquid. ? Not being able to swallow your saliva. ? Drooling. ? Choking. ? A hoarse voice. ? Trouble breathing. ? Noisy breathing. ? Vomit that has blood in it. How is this diagnosed? This condition may be diagnosed based on your symptoms and medical history. Your health care provider will do a physical exam to confirm the diagnosis and to find the object. A metal detector may be used to find metal objects. Imaging studies may also be done, including: ? X-rays. ? A CT scan. Some objects may not be seen on imaging studies. In those cases, an exam or procedure may be done using a scope to look into your esophagus (endoscopy). The tube (endoscope) that is used for this exam may be stiff (rigid) or flexible, depending on where the foreign body is stuck. How is this treated? Usually, an object that has passed into your stomach but is not dangerous will pass through your digestive system without treatment. If the swallowed object is not dangerous but is stuck in your esophagus: ? Your health care provider may gently suction out the object through your mouth. ? You may be given medicine to relax the muscles of your esophagus to allow the object to pass through. ? An endoscopy may be done to find and remove the object if it does not pass through with medicine. Your health care provider will put medical instruments through the endoscope to remove the object. You may need emergency treatment if: ? The object is in your esophagus and is causing you to inhale saliva into your lungs (aspirate). ? The object is in your esophagus and is pressing on your airway. This makes it hard for you to breathe. ? The object can damage your digestive tract. Some objects that can cause damage include batteries, magnets, sharp objects, and drugs. Follow these instructions at home: Caring for yourself ? If the object in your digestive system is expected to pass: ? Continue eating what you usually eat unless your health care provider gives you different instructions. ? Check your stool after every bowel movement to see if you have passed the object. ? Contact your health care provider if the object has not passed after 3 days. ? If you had an endoscopic procedure to remove the foreign body, follow instructions from your health care provider about caring for yourself after the procedure. General instructions ? Take cetw-zec-qofeqpe and prescription medicines only as told by your health care provider. ? Keep all follow-up visits and repeat imaging tests as told by your health care provider. This is important. How is this prevented? ? Cut your food into small pieces. ? Always sit upright while eating. ? Remove bones from meat and fish. ? Chew your food well before swallowing. ? Do not talk, laugh, or walk around while eating or swallowing. Contact a health care provider if: ? You continue to have symptoms of a swallowed foreign body. ? The object has not passed out of your body after 3 days. Get help right away if you: ? Have a fever. ? Have p (more content not included)... Normal [facility] ED Patient Summaryon 023 ED Patient Summary [place] [id number] Patient Discharge Instructions Person Information Name: GENEVIEVE GUTIÉRREZ Age: 41 Years Arrival Date: 06/25/2022 19:45:18 Discharge Diagnosis: Globus sensation Primary Care Physician: MICHAEL DANIEL, Krystle Reyes Provider Information Primary Provider: Kasi Bundy DO Advanced Account Contact Associate:Zac Craig PA-C The exam and treatment you received in the Emergency Department were for an urgent problem and are not intended as complete care. It is important that you follow up with a doctor, nurse practitioner, or physician?s cardiovascular physician assistant for ongoing care. If your symptoms become worse or you do not improve as expected and you are unable to reach your usual health care provider, you should return to the Emergency Department. We are available 24 hours a day. GENEVIEVE GUTIÉRREZ has been given the following list of patient education materials, prescriptions and follow-up instructions: Follow-up Instructions: With: Address: When: Krystle RODRIGUEZ [address] [place], [place] [id number] Business (1) In 3 days 06/28/2022 Comments: Call the office of your primary care doctor to arrange for follow-up within the above-stated timeframe. Follow-up with your primary care doctor about this ED visit. You should review your labs, imaging, and diagnoses from this ED visit with your primary care physician. If you were prescribed medications you should discuss possible side-effects and drug interactions with your pharmacist. Call 911 or go to the nearest Emergency Department if you develop any new or worsening symptoms. In the event that this physician does not participate in your insurance network, please consult with your insurance company to find a nearby participating provider. Patient Education Materials: Swallowed Foreign Body, Adult A MESSAGE TO ALL PATIENTS REGARDING OPIOIDS PRESCRIPTION OPIOIDS: WHAT YOU NEED TO KNOW Prescription opioids can be used to help relieve iljtcxpp-kv-jhlmep pain and are often prescribed following a surgery or injury, or for certain health conditions. These medications can be an important part of the treatment but also come with serious risks. It is important to work with your healthcare provider to make sure you are getting the safest, most effective care. WHAT ARE THE RISKS AND SIDE EFFECTS OF OPIOID USE? Prescription opioids carry serious risks of addiction and overdose, especially with prolonged use. An opioid overdose, often marked by slowed breathing, can cause sudden . The use of prescription opioids can have a number of side effects as well, even when taken as directed: ? Tolerance?meaning you might need to take more of the medication for the same pain relief ? Physical dependence?meaning you have symptoms of withdrawal when a medication is stopped ? Increased sensitivity to pain ? Constipation ? Nausea, vomiting, and dry mouth ? Sleepiness and dizziness ? Confusion ? Depression ? Low levels of testosterone that can result in lower sex drive, energy, and strength ? Itching and sweating RISKS ARE GREATER WITH: ? History of drug misuse, substance use disorder, or overdose ? Mental health conditions (such as depression or anxiety) ? Sleep apnea ? Older age (65 years and older) ? Avoid alcohol while taking prescription opioids. Also, unless specifically advised by your health care provider, medications to avoid include: ? Benzodiazepines (such as Xanax or Valium) ? Muscle relaxants (such as Soma or Flexeril) ? Hypnotics (such as Ambien or Lunesta) ? Other prescription opioids KNOW YOUR OPTIONS Talk to your health care provider about ways to manage your pain that don?t involve prescription opioids. Some of these options may actually work better and have fewer risks and side effects. Options may include: ? Pain relievers such as acetaminophen, ibuprofen, and naproxen ? Some medication that are also used for depression or seizures ? Physical therapy and exercise ? Cognitive behavioral therapy, a psychological, goal-directed approach, in which patients learn how to modify physical, behavioral, and emotional triggers of pain and stress. IF YOU ARE PRESCRIBED OPIOIDS FOR PAIN: ? Never take opioids in greater amounts or more often than prescribed. ? Follow up with your primary health care provider. o Work together to create a plan on how to manage your pain. o Talk about ways to help manage your pain that don?t involve prescription opioids. o Talk about any and all concerns and side effects. ? Help prevent misuse and abuse o Never sell or share prescription opioids. o Never use another person?s prescription opioids. ? Store prescription opioids in a secure place and out of reach of others (this may include visitors, childre (more content not included)... [facility] SEROLOGYOrdered By: Emely Marina on 12-23-2021 HCG.beta subunit (U) [Moles/Vol] Negative Normal [facility] URINALYSISOrdered By: [place] Marina on 12-23-2021 Bacteria LM Ql (Urine sed) Trace /HPF Normal Trace/HPF [facility] UA Auto SS Bilirubin Ql (U) Negative (12/23/21 5:06 PM) Normal Negative [facility] UA Auto SS Clarity (U) SL CLOUDY Invalid Interpretation Code [facility] UA Auto SS Color (U) Yellow 1 (12/23/21 5:06 PM) Normal Yellow [facility] UA Auto SS Comment on above: Result Comment: Only 2cc of urine received. Epithelial cells.squamous LM.HPF (Urine sed) [#/Area] 3-4 /HPF Normal 0-2/HPF [facility] UA Aut o SS Glucose Test strip (U) [Mass/Vol] Negative (12/23/21 5:06 PM) Normal Negative [facility] UA Auto SS Hemoglobin Ql (U) Negative (12/23/21 5:06 PM) Normal Negative [facility] UA Auto SS Ketones (U) [Mass/Vol] Negative (12/23/21 5:06 PM) Normal Negative [facility] UA Auto SS [place].plasma/[place] .RBC (Bld) [Mass ratio] 0-3 /HPF Normal 0-3/HPF [facility] UA Auto SS Mucus Ql (Urine sed) Trace (12/23/21 5:06 PM) Normal [facility] UA Auto SS Nitrite Ql (U) Negative (12/23/21 5:06 PM) Normal Negative [facility] UA Auto SS pH (U) 5.0 *NA* (12/23/21 5:06 PM) Invalid Interpretation Code 5.0 - 9.0 [facility] UA Auto SS Protein (U) [Mass/Vol] Negative (12/23/21 5:06 PM) Normal Negative [facility] UA Auto SS Specific gravity (U) [Rel density] >=1.030 *NA* (12/23/21 5:06 PM) Invalid Interpretation Code 1.005 - 1.030 [facility] UA Auto SS UA Spec Desc Clean Catch (12/23/21 5:06 PM) Normal [facility] UA Auto SS Urobilinogen Qn (U) [id number] {Cris'U}/dL Normal 0.0 - 1.0 EU/dL [facility] UA Auto SS WBC Auto Ql (U) Negative (12/23/21 5:06 PM) Normal Negative [facility] UA Auto SS WBC LM.HPF (Urine sed) [#/Area] 0-5 /HPF Normal 0-5/HPF [facility] UA Auto SS Vital Signs Date Time Vital Sign Value Performing Clinician Arline deleon 06-25-2022 19:56-0400 Body temperature 98.42 [degF] Kasi [employer] [facility] 06-25-2022 19:56-0400 Diastolic blood pressure 90 mm[Hg] [email or web address] [facility] 06-25-2022 19:56-0400 Heart rate 111 /min Kasi [employer] [facility] 06-25-2022 19:56-0400 Respiratory rate 18 /min Kasi [employer] [facility] 06-25-2022 19:56-0400 SaO2% (BldA) [Mass fraction] 98 % [employer] [facility] 06-25-2022 19:56-0400 Systolic blood pressure 150 mm[Hg] [employer] [facility] 12-23-2021 16:41-0400 Body temperature 97.7 [degF] Juan Francisco Cirilo [facility] 12-23-2021 16:41-0400 Diastolic blood pressure 88 mm[Hg] Juan Francisco Kerr [facility] 12-23-2021 16:41-0400 Heart rate 112 /min Juan Francisco Kerr [facility] 12-23-2021 16:41-0400 Respiratory rate 18 /min Juan Franciscomarvel Kerr [facility] 12-23-2021 16:41-0400 SaO2% (BldA) [Mass fraction] 100 % Juan Francisco Kerr [facility] 12-23-2021 16:41-0400 Systolic blood pressure 134 mm[Hg] Juan Francisco Kerr [facility] Encounters Encounter Date Encounter Type Care Provider Facility Start: 04-08-2023 End: 04-09-2023 Emergency department patient visit Kasi Bundy Facility:[facility] Start: 06-25-2022 End: 06-25-2022 Emergency department patient visit Kasi Bundy Facility:[facility] Start: 06-25-2022 End: 06-25-2022 Emergency department patient visit Kasi Bundy [facility] Start: 12-23-2021 End: 12-23-2021 Emergency department patient visit Juan Francisco Kerr [facility] Procedures Date Procedure Procedure Detail Performing Clinician Start: 02-14-2012 excision lesions sca lp, face Juan Francisco Kerr Start: 06-13-2009 shave excision lesio ns posterior neck and left upper quad Juan Francisco Kerr section Juan Francisco Kerr Comment on above: 2008 2001 Immunizations Immunization Date Immunization Notes Care Provider Fa [facility] 07-14-2020 COVID-19, mRNA, LNP- S, PF, 30 mcg/0.3 mL dose Juan Francisco Kerr [facility] Comment on above: Reason for Medicatio n: Prophylaxis Payers Date Payer Category Payer Unknown [id number] 1980 Unknown [id number] 1980 Unknown [id number] Social History Date Type Detail Facility Tobacco smoking status No Smokin g Status Entered [facility] Sex Assigned At Female [facility] Start: 06-25-2022 Tobacco smoking status Light t obacco smoker (finding) [facility] Functional Status Date Assessment Result Facility 06-25-2022 Functional Status N/A [facility] 12-23-2021 Functional Status N/A [facility] Hospital Discharge instructions 06-25-2022 Note Date & Type Note Facility 06-25-2022 Hospital Discharg e instructions Patient Education 06/25/2022 20:30:11 Swallowed Foreign Body, Adult Swallowed Foreign Body, Adult A swallowed foreign body is an object that gets stuck in the digestive tract, either in the part of the body that moves food from the mouth to the stomach (esophagus) or in another part. When a person swallows an object, it passes into the esophagus. The narrowest place in the digestive system is where the esophagus meets the stomach. If the object can pass through that place, it will usually continue through the rest of the digestive system without causing problems. A foreign body that gets stuck may need to be removed. Foreign bodies may be swallowed by accident or on purpose. It is very important to tell your health care provider what you have swallowed. Some swallowed objects can be life-threatening, and you may need emergency treatment. Dangerous swallowed foreign bodies include: Objects that get stuck in your throat. Objects that make you unable to swallow. Objects that interfere with your breathing. Sharp objects. Harmful or poisonous (toxic) objects, such as batteries or illegal drugs. What are the causes? The most common swallowed foreign body is food that will not pass through your esophagus to your stomach (food impaction). Foods that commonly become impacted include meats and hard vegetables such as carrots and radishes. Other common swallowed foreign bodies include: Pieces of bone from meat or fish. Toothpicks. Dentures. What increases the risk? You are more likely to have a swallowed foreign body if you: Wear dentures. Have been drinking alcohol or taking drugs. Have a mental health condition. Have difficulties with thinking and learning (cognitive impairment). Have a narrowed or scarred area in your digestive tract. What are the signs or symptoms? Symptoms of this condition include: Pain or pressure in your throat or chest. Not being able to swallow food or liquid. Not being able to swallow your saliva. Drooling. Choking. A hoarse voice. Trouble breathing. Noisy breathing. Vomit that has blood in it. How is this diagnosed? This condition may be diagnosed based on your symptoms and medical history. Your health care provider will do a physical exam to confirm the diagnosis and to find the object. A metal detector may be used to find metal objects. Imaging studies may also be done, including: X-rays. A CT scan. Some objects may not be seen on imaging studies. In those cases, an exam or procedure may be done using a scope to look into your esophagus (endoscopy). The tube (endoscope) that is used for this exam may be stiff (rigid) or flexible, depending on where the foreign body is stuck. How is this treated? Usually, an object that has passed into your stomach but is not dangerous will pass through your digestive system without treatment. If the swallowed object is not dangerous but is stuck in your esophagus: Your health care provider may gently suction out the object through your mouth. You may be given medicine to relax the muscles of your esophagus to allow the object to pass through. An endoscopy may be done to find and remove the object if it does not pass through with medicine. Your health care provider will put medical instruments through the endoscope to remove the object. You may need emergency treatment if: ?The object is in your esophagus and is causing you to inhale saliva into your lungs (aspirate). ?The object is in your esophagus and is pressing on your airway. This makes it hard for you to breathe. ?The object can damage your digestive tract. Some objects that can cause damage include batteries, magnets, sharp objects, and drugs. Follow these instructions at home: Caring for yourself If the object in your digestive system is expected to pass: ?Continue eating what you usually eat unless your health care provider gives you different instructions. ?Check your stool after every bowel movement to see if you have passed the object. ?Contact your health care provider if the object has not passed after 3 days. If you had an endoscopic procedure to remove the foreign body, follow instructions from your health care provider about caring for yourself after the procedure. General instructions Take ivqc-ttc-ttnynkc and prescription medicines only as told by your health care provider. Keep all follow-up visits and repeat imaging tests as told by your health care provider. This is important. How is this prevented? Cut your food into small pieces. Always sit upright while eating. Remove bones from meat and fish. Chew your food well before swallowing. Do not talk, laugh, or walk around while eating or swallowing. Contact a health care provider if: You continue to have symptoms of a swallowed foreign body. The object has not passed out of your body after 3 days. Get help right away if you: Have a fever. Have pain in your chest or your abdomen. Cough up blood. Have blood in your stool (feces). Have blood in your vomit after treatment. Summary A swallowed foreign body is an object that gets stuck in the digestive tract, either in the part of the body that moves food from the mouth to the stomach (esophagus) or in another part. Usually, an object that has passed into your stomach but is not dangerous will pass through your digestive system without treatment. Endoscopy may be done to find and remove the object. If the object in your digestive system is expected to pass, contact your health care provider if the object has not passed after 3 days. Get help right away if you have blood in your stool (feces) or there is blood when you cough or vomit. This information is not intended to replace advice given to you by your health care provider. Make sure you discuss any questions you have with your health care provider. Document Released: 09/19/2010 Document Revised: 02/12/2019 Document Reviewed: 02/12/2019 [employer] Patient Education 2020 [employer]. Follow Up Care 06/25/2022 19:46:36 With:Krystle RODRIGUEZ Address: [address] [place], [place] [id number] Business (1) When:06/28/2022 20:29:55 Comments:Call the office of your primary care doctor to arrange for follow-up within the above-stated timeframe. Follow-up with your primary care doctor about this ED visit. You should review your labs, imaging, and diagnoses from this ED visit with your primary care physician. If you were prescribed medications you should discuss possible side-effects and drug interactions with your pharmacist. Call 911 or go to the nearest Emergency Department if you develop any new or worsening symptoms. [facility] Evaluation + Plan note 06-25-2022 Note Date & Type Note Facility 06-25-2022 Evaluation + Plan note Extrac jordana from: Title:ED Note Author:Kiara SOLIS Zac Hector Jovanni e:06/25/22 Globus sensation (R09.89: Ot her specified symptoms and signs involving the circulatory and respiratory systems) Orders: Al hydroxide/Mg hydroxide/simethicone, 30 mL, Susp-Oral, Oral, Once, Stop date 06/25/22 20:27:00 EDT, STAT, Start date 06/25/22 20:27:00 EDT atropine/hyoscyamine/PB/scopolamine, 10 mL, Elixir, Oral, Once, Stop date 06/25/22 20:27:00 EDT, STAT, Start date 06/25/22 20:27:00 EDT lidocaine topical, 200 mg, 10 mL, Soln-Oral, Oral, Once, Stop date 06/25/22 20:27:00 EDT, STAT, Start date 06/25/22 20:27:00 EDT [facility] Hospital Discharge instructions 12-23-2021 Note Date & Type Note Facility 12-23-2021 Hospital Discharg e instructions Patient Education 12/23/2021 18:26:55 Acute Back Pain, Adult Acute Back Pain, Adult Acute back pain is sudden and usually short-lived. It is often caused by an injury to the muscles and tissues in the back. The injury may result from: A muscle or ligament getting overstretched or torn (strained). Ligaments are tissues that connect bones to each other. Lifting something improperly can cause a back strain. Wear and tear (degeneration) of the spinal disks. Spinal disks are circular tissue that provides cushioning between the bones of the spine (vertebrae). Twisting motions, such as while playing sports or doing yard work. A hit to the back. Arthritis. You may have a physical exam, lab tests, and imaging tests to find the cause of your pain. Acute back pain usually goes away with rest and home care. Follow these instructions at home: Managing pain, stiffness, and swelling Take msme-rdw-gjcaoft and prescription medicines only as told by your health care provider. Your health care provider may recommend applying ice during the first 24 48 hours after your pain starts. To do this: ?Put ice in a plastic bag. ?Place a towel between your skin and the bag. ?Leave the ice on for 20 minutes, 2 3 times a day. If directed, apply heat to the affected area as often as told by your health care provider. Use the heat source that your health care provider recommends, such as a moist heat pack or a heating pad. ?Place a towel between your skin and the heat source. ?Leave the heat on for 20 30 minutes. ?Remove the heat if your skin turns bright red. This is especially important if you are unable to feel pain, heat, or cold. You have a greater risk of getting burned. Activity Do not stay in bed. Staying in bed for more than 1 2 days can delay your recovery. Sit up and stand up straight. Avoid leaning forward when you sit, or hunching over when you stand. ?If you work at a desk, sit close to it so you do not need to lean over. Keep your chin tucked in. Keep your neck drawn back, and keep your elbows bent at a right angle. Your arms should look like the letter L. ?Sit high and close to the steering wheel when you drive. Add lower back (lumbar) support to your car seat, if needed. Take short walks on even surfaces as soon as you are able. Try to increase the length of time you walk each day. 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 Sitting or standing for long periods of time can put stress on your back. Do not drive or use heavy machinery while taking prescription pain medicine. Use proper lifting techniques. When you bend and lift, use positions that put less stress on your back: ?Bend your knees. ?Keep the load close to your body. ?Avoid twisting. Exercise regularly as told by your health care provider. Exercising helps your back heal faster and helps prevent back injuries by keeping muscles strong and flexible. Work with a physical therapist to make a safe exercise program, as recommended by your health care provider. Do any exercises as told by your physical therapist. Lifestyle Maintain a healthy weight. Extra weight puts stress on your back and makes it difficult to have good posture. Avoid activities or situations that make you feel anxious or stressed. Stress and anxiety increase muscle tension and can make back pain worse. Learn ways to manage anxiety and stress, such as through exercise. General instructions Sleep on a firm mattress in a comfortable position. Try lying on your side with your knees slightly bent. If you lie on your back, put a pillow under your knees. Follow your treatment plan as told by your health care provider. This may include: ?Cognitive or behavioral therapy. ?Acupuncture or massage therapy. ?Meditation or yoga. Contact a health care provider if: You have pain that is not relieved with rest or medicine. You have increasing pain going down into your legs or buttocks. Your pain does not improve after 2 weeks. You have pain at night. You lose weight without trying. You have a fever or chills. Get help right away if: You develop new bowel or bladder control problems. You have unusual weakness or numbness in your arms or legs. You develop nausea or vomiting. You develop abdominal pain. You feel faint. Summary Acute back pain is sudden and usually short-lived. Use proper lifting techniques. When you bend and lift, use positions that put less stress on your back. Take calz-ech-pxtosot and prescription medicines and apply heat or ice as directed by your health care provider. This information is not intended to replace advice given to you by your health care provider. Make sure you discuss any questions you have with your health care provider. Document Released: 04/01/2006 Document Revised: 07/21/2019 Document Reviewed: 11/13/2017 [employer] Patient Education 2020 [employer]. Follow Up Care 12/23/2021 16:40:17 With:Joel Morejon DO Address: [address] [place], [place] [address] [place] [address]- When:12/26/2021 [facility] Evaluation + Plan note 12-23-2021 Note Date & Type Note Facility 12-23-2021 Evaluation + Plan note Extrac jordana from: Title:ED Note Author:[place] SOLIS, Melania Duvall ate:12/23/21 1. Acute low back pain (M54. 50: Low back pain, unspecified) Ordered: ketorolac, 10 mg = 1 tab(s), Oral, QID, PRN for pain, X 5 day(s), # 20 tab(s), Refills(s) 0, Pharmacy: [facility], 160, cm, 12/23/21 16:44:00 EDT, Height/Length Dosing, 87, kg, 12/23/21 16:44:00 EDT, Weight Dosing lidocaine topical, 1 patch(es), Topical, Daily, 7 EA, Refill(s) 0, apply 12 hours on and 12 hours off daily, [facility], 160, cm, 12/23/21 16:44:00 EDT, Height/Length Dosing, 87, kg, 12/23/21 16:44:00 EDT, Weight Dosing Orders: acetaminophen, 975 mg = 3 tab(s), Tab, Oral, Once, Stop date 12/23/21 17:03:00 EDT, STAT, Start date 12/23/21 17:03:00 EDT, 12/23/21 17:03:00 EDT ketorolac, 30 mg = 1 mL, Injection, IntraMuscular, Once, Stop date 12/23/21 17:03:00 EDT, STAT, Start date 12/23/21 17:03:00 EDT, 12/23/21 17:03:00 EDT U Beta Hcg Qual UA With Cult Reflex XR Hip Bilat 2 Views + Pelvis [facility] Hospital course Narrative Note Date & Type Note Facility Hospital course Narrative No data available for this section [facility] Progress note Note Date & Type Note Facility Progress note No data available for this section [facility] Summary Purpose Family History No Family History Records Found Advance Directives No Advanced Directives Records Found Additional Source Comments Care Team (unrecognized sect ion and content) Personnel Name: Joel Morejon DO Address: [address] [place] [address] Personnel Name: Krystle RODRIGUEZ MD Address: Address: [address] [place], [place] [address] [place] [id number] INFORMATION SOURCE (unrecogn ized section and content) DATE CREATED AUTHOR 04/10/2023 [facility] FOR RECORDS PERTAINING TO PATIENTS WHO ARE OR HAVE BEEN ENROLLED IN A CHEMICAL DEPENDENCY/SUBSTANCEABUSE PROGRAM, SOME INFORMATION MAY BE OMITTED. This clinical summary was aggregated from multiple sources. Caution should be exercised in using it in the provision of clinical care. This summary normalizes information from multiple sources, and as a consequence, information in this document may materially change the coding, format and clinical context of patient data. In addition, data may be omitted in some cases. CLINICAL DECISIONS SHOULD BE BASED ON THE PRIMARY CLINICAL RECORDS. [facility]. provides no warranty or guarantee of the accuracy or completeness of information in this document.
--- NOTE | 2024-09-10 02:30 | ED.EXTPRO1 ---
HPI - Extremity Problem General Chief complaint: Extremity Problem, Nontraumatic Stated complaint: UPPER EXTREMITY PAIN Time Seen by Provider: 09/10/24 02:25 Source: patient Mode of arrival: walk-in Limitations: no limitations History of Present Illness HPI Narrative: patient states she was using her arms to wash a car about 2-3 days ago. She was also painting but denies using the left arm. Seen at [facility] yesterday and states she was referred to orthopedics and has an appointment next week. states xray at [facility] was neg per patient. Ultrasound performed as well. No fever. Main complaint is pain left elbow and now swelling left hand. no fever or chills. Not able to recall any injury. No pain left shoulder or wrist Related Data Home Medications ?Medication ?Instructions ?Recorded ?Confirmed naproxen 500 mg tablet 500 mg PO Q12H 09/10/24 09/10/24 oxycodone-acetaminophen 5 mg-325 1 tab PO Q6H PRN pain 09/10/24 09/10/24 mg tablet Allergies Allergy/AdvReac Type Severity Reaction Status Date / Time cephalexin (From Keflex) Allergy Verified 04/08/23 23:28 Review of Systems ROS Status of ROS 10 or more systems reviewed and unremarkable except as noted in history and below PFS PFS Social History Smoking status: Current every day smoker Little interest or pleasure in doing things: not at all Feeling down, depressed, or hopeless: not at all Exam Constitutional Vital Signs, click to edit/add: Last Vital Signs Temp 99.5 F 09/10/24 01:48 Pulse 111 H 09/10/24 01:48 Resp 18 09/10/24 01:48 BP 145/81 H 09/10/24 01:48 Pulse Ox 100 09/10/24 01:48 O2 Del Method Room Air 09/10/24 01:48 Common normals: average body habitus, oriented x3, no limitations, healthy appearing, alert and well nourished [facility] Common normals: normocephalic and head/scalp atraumatic Eye Common normals: PERRL, EOMs intact bilaterally and conjunctivae normal Respiratory Common normals: normal respiratory effort, no retractions, no use of accessory muscles and clear to auscultation bilaterally Cardio Common normals: regular rate, regular rhythm, S1 normal heart sound and S2 normal heart sound Extremity Other: mild swelling left elbow . mod. nonspecific tenderness. No erythema. mild puffiness of left hand. nontender. Left shoulder exam neg. limited ROM left elbow Neuro Common normals: oriented x3, CN's II-XII intact bilaterally and no focal motor deficits Psych Appearance: grossly normal Course Vital Signs Vital signs: Vital Signs Temperature 99.5 F 09/10/24 01:48 Pulse Rate 111 H 09/10/24 01:48 Respiratory Rate 18 09/10/24 01:48 Blood Pressure 145/81 H 09/10/24 01:48 Pulse Oximetry 100 09/10/24 01:48 Oxygen Delivery Method Room Air 09/10/24 01:48 Temperature 99.5 F 09/10/24 01:48 Pulse Rate 111 H 09/10/24 01:48 Respiratory Rate 18 09/10/24 01:48 Blood Pressure 145/81 H 09/10/24 01:48 Pulse Oximetry 100 09/10/24 01:48 Oxygen Delivery Method Room Air 09/10/24 01:48 MDM - Extremity (Nontraumatic) MDM Narrative Medical decision making narrative: patient presents complaining of left elbow pain. Not able to recall any specific injury but was recently washing a car and also painting. Seen at [facility] and xray with evidence of calcifications and ultrasound neg for DVT. she has mild swelling of her hand most likely related to limited use of the extremity due to elbow pain. labs with elevated CRP and normal WBC. patient afebrile. treated with steroids and sling and discharged home Lab Data Labs: Lab Results 09/10/24 Range/Units 02:50 WBC 10.9 (4.0-11.0) 10^3/uL RBC 4.24 (4.20-5.40) 10^6/uL Hgb 12.0 (12.0-16.0) g/dL Hct 36.4 (36.0-48.0) % MCV 85.8 (81.0-99.0) fL MCH 28.3 (26.7-34.0) pg MCHC 33.0 (29.9-35.2) g/dL RDW 12.8 (11.0-15.0) % Plt Count 335 (150-450) 10^3/uL MPV 8.7 L (9.5-13.5) fL Neut % (Auto) 59.5 (43.0-75.0) % Lymph % (Auto) 27.8 (20.5-60.0) % [place] % (Auto) 8.5 (1.7-12.0) % Eos % (Auto) 3.3 (0.9-7.0) % Baso % (Auto) 0.6 (0.2-2.0) % Neut # (Auto) 6.5 (1.4-6.5) 10^3/uL Lymph # (Auto) 3.0 (1.2-3.8) 10^3/uL [place] # (Auto) 0.9 H (0.3-0.8) 10^3/uL Eos # (Auto) 0.4 (0.0-0.7) 10^3/uL Baso # (Auto) 0.1 (0.0-0.1) 10^3/uL Abs Immat Gran (auto) 0.03 (0.00-0.03) 10^3/uL Imm/Tot Granulo (auto) 0.3 (0.0-0.5) % ESR 35 H (<=20) mm/hr Sodium 139 (136-145) mmol/L Potassium 3.9 (3.5-5.1) mmol/L Chloride 105 (98-107) mmol/L Carbon Dioxide 23.8 (21.0-32.0) mmol/L Anion Gap 14.1 BUN 10.0 (7.0-18.0) mg/dL Creatinine 0.49 L (0.55-1.02) mg/dL Est GFR ( Amer) >60 (>=60 mL/min/1.73m^2) Est GFR (Non-Af Amer) >60 (>=60 mL/min/1.73m^2) BUN/Creatinine Ratio 20.4 Glucose 110 H (74-106) mg/dL Calcium 8.6 (8.5-10.1) mg/dL C-Reactive Protein 3.47 H (<=0.50) mg/dL Discharge Plan Discharge Chief Complaint: Extremity Problem, Nontraumatic Clinical Impression: Calcific tendinitis of left elbow Patient Disposition: Home, Self-Care Prescriptions / Home Meds: No Action naproxen 500 mg tablet 500 mg PO Q12H oxycodone-acetaminophen 5-325 mg tablet 1 tab PO Q6H PRN (Reason: pain) Print Language: [place] Instructions: Tendinitis (ED) Additional Instructions: follow up with orthopedics next week Referrals: ALYSA RODRIGUEZ MD [Primary Care Provider, Family Practice] - 1 week
[2024-09-10] MEDS: KETOROLAC TROMETHAMINE 30 MG/ML VIAL IVP (02:59)
[2024-09-10] MEDS: METHYLPREDNISOLONE SOD SUCC PF 125 MG/2 ML VIAL IVP (02:59)
[2024-09-10 03:01] LABS: Basophils Absolute Auto 0.1 10^3/uL (0.0-0.1); Basophils Percent Auto 0.6 % (0.2-2.0); Eosinophils Absolute Auto 0.4 10^3/uL (0.0-0.7); Eosinophils Percent Auto 3.3 % (0.9-7.0); Hematocrit 36.4 % (36.0-48.0); Immature Granulocytes Abs Auto 0.03 10^3/uL (0.00-0.03); Immature Granulocytes Pct Auto 0.3 % (0.0-0.5); Lymphocytes Percent Auto 27.8 % (20.5-60.0); Mean Corpuscular Hemoglobin 28.3 pg (26.7-34.0); Mean Corpuscular Volume 85.8 fL (81.0-99.0); Mean Platelet Volume 8.7 fL (9.5-13.5); Monocytes Absolute Auto 0.9 10^3/uL (0.3-0.8); Monocytes Percent Auto 8.5 % (1.7-12.0); Neutrophils Absolute Auto 6.5 10^3/uL (1.4-6.5); Neutrophils Percent Auto 59.5 % (43.0-75.0); Platelet Count 335 10^3/uL (150-450); Red Blood Count 4.24 10^6/uL (4.20-5.40); Red Cell Distribution Width 12.8 % (11.0-15.0); White Blood Count 10.9 10^3/uL (4.0-11.0)
[2024-09-10 03:07] LABS: Erythrocyte Sedimentation Rate 35 mm/hr (<=20)
[2024-09-10 03:14] LABS: Anion Gap 14.1; BUN Creatinine Ratio 20.4; C Reactive Protein 3.47 mg/dL (<=0.50); Calcium 8.6 mg/dL (8.5-10.1); Carbon Dioxide 23.8 mmol/L (21.0-32.0); Chloride 105 mmol/L (98-107); Estimated GFR (African America >60 (>=60 mL/min/1.73m^2); Estimated GFR (Non-African Ame >60 (>=60 mL/min/1.73m^2); Glucose 110 mg/dL (74-106); Potassium 3.9 mmol/L (3.5-5.1); Sodium 139 mmol/L (136-145)
== END 2024-09-10 03:51 | disposition home or self-care (01) ==
PROVIDERS: Emergency Provider Internal Medicine; Family Provider Family Medicine; PCP Family Medicine
DX: M65.232 Calcific tendinitis, left forearm (principal); M25.522 Pain in left elbow; R60.0 Localized edema
CPT/HCPCS: 36415; 80048; 85025; 85652; 86140; 96374; 96375; 99285; J1885; J2919